=== PATIENT | male | born 1965 | race Caucasian/White ===

== ENCOUNTER 2024-10-20 11:19 | Emergency (ER) | payer OTHER, SELFPAY ==
--- NOTE | 2024-10-20 11:22 | ECG_ITS ---
APPROVED REPORT Exam: Resting ECG HR:70 bpm ECG Measurements Heart Rate 70 AXES WI 167 P 32 QRSd 84 QRS 43 QT 359 T 78 QTc 379 Conclusion Normal sinus rhythm with sinus arrhythmia Normal axis Normal intervals No STEMI Electronically signed by : Shaun García, 10/20/2024 17:33:12
--- NOTE | 2024-10-20 11:29 | [facility].EDCP ---
Discharge Plan Referrals Follow up/Referrals: Provider,Referral, [Primary Care Provider, Medical] - See instructions Clinical Impressions Clinical Impression: Acute on chronic intracranial subdural hematoma, Spontaneous intracranial hemorrhage, Acute intractable headache Stand Alone Forms Stand Alone Forms: Transfer Record - ED Print Language Print Language: Divehi Discharge ED Provider: Shaun García General Chief Complaint: Headache Stated Complaint: Headache & Hypertension Time Seen by Provider: 10/20/24 11:33 History of Present Illness HPI narrative: Is a 59-year-old male patient, past medical history of untreated hypertension and tobacco abuse with COPD, who is presenting to the Emergency Department today for evaluation of a severe headache. Patient states this headache began 2 to 3 days ago, and since onset of headache it has significantly worsened and is now described as the worst headache of his life. Patient states that he has had some blurred vision at times. Describes worsening of the headache with bearing down with bowel movements and with coughing. Also states that his headache is worse with laying flat. He has not had any weakness in his upper or lower extremities. He states that at 1 point he did have some numbness and tingling in the left arm but this has resolved. This morning prior to arrival the patient took four 325 mg aspirin which did not relieve his headache. Related Data Allergies Allergy/AdvReac Type Severity Reaction Status Date / Time No Known Allergies Allergy Verified 10/20/24 11:58 [facility] Disclaimer: The information contained in this section may have been updated after the patient was seen, as this information can be updated by other users. Social History Smoking Status: Former smoker alcohol intake: former current occupational status: unemployed and other Travel in the last 8 weeks?: None ROS Obtained: Yes Systems reviewed as appropriate & no additional complaints except as documented Physical Exam General General appearance: other (See MDM) Respiratory Respiratory exam: Present other (See MDM) Cardiovascular Cardiovascular exam: Present other (See MDM) Neurological Exam Neurological exam: Present other (See MDM) HEART Score HEART Score HEART Score assessment performed?: No Critical Care Critical Care Time Critical Care Time: Yes Attestation: On 10/20/24, the high probability of a clinically significant, sudden or life threatening deterioration of the following system(s) required my full and direct attention, intervention and personal management. The time I documented below is in addition to time spent performing reported procedures but includes the following listed in this critical care notation. Total Time Total Critical Care Time: 35 Medical Decision Making Medical Records Medical records reviewed: Yes I reviewed the patient's medical records. Jayant Inquiry Pt receiving controlled substance: No Jayant was queried for this patient: No Vital Signs Vital Signs: 10/20/24 11:31 10/20/24 11:46 10/20/24 12:01 Temperature 97.6 F Temperature Source Oral Pulse Rate 93 H 74 Pulse Rate [Left Radial] 70 Respiratory Rate 12 20 14 Blood Pressure 190/126 H 197/150 H Blood Pressure [Right Arm] 200/117 H Blood Pressure Mean [Right Arm] 144 02 Sat by Pulse Oximetry 94 L 95 96 Oxygen Delivery Method Room Air Lab Data Labs: Lab Results 10/20/24 11:25: WBC 8.9, RBC 4.74, Hgb 14.0 L, Hct 41.2 L, MCV 86.9, MCH 29.5, MCHC 34.0, RDW 12.8, Plt Count 339, MPV 9.3, Neut % (Auto) 61.2, Lymph % (Auto) 27.3, Humphreys % (Auto) 7.6, Eos % (Auto) 2.7, Baso % (Auto) 0.8, Neut # (Auto) 5.4, Lymph # (Auto) 2.4, Humphreys # (Auto) 0.7, Eos # (Auto) 0.2, Baso # (Auto) 0.1, Sodium 140, Potassium 3.9, Chloride 109 H, Carbon Dioxide 24, Anion Gap 10.9, BUN 15, Creatinine 0.90, Estimated GFR 86, Est GFR ( Amer) 104, Glucose 145 H, Calcium 9.3, Total Bilirubin 0.4, AST 24, ALT 18, Alkaline Phosphatase 101, Total Protein 7.5, Albumin 4.2, Globulin 3.3 H, Albumin/Globulin Ratio 1.3 10/20/24 11:26: POC Glucose 142 H 10/20/24 11:25 10/20/24 11:25 Response Orders (Tests/Meds): ED MEDICATIONS Generic Name Dose Route Start Last Admin Trade Name Freq PRN Reason Stop Dose Admin Magnesium Sulfate 2 gm in 50 mls @ 50 mls/hr 10/20/24 11:40 10/20/24 12:00 Magnesium Sulfate 2gm/50ml Premix IV 10/20/24 12:39 Not Given ONCE ONE Nicardipine HCl 25 mg/ Sodium 250 mls @ 25 mls/hr 10/20/24 11:55 10/20/24 12:12 Chloride IV 11/19/24 11:54 2.5 mg/hr .Q10H JOANA 25 mls/hr Protocol Administration 2.5 MG/HR Discontinued Medications Generic Name Dose Route Start Last Admin Trade Name Freq PRN Reason Stop Dose Admin Acetaminophen 1,000 mg 10/20/24 11:40 10/20/24 11:58 Acetaminophen 500mg Tab PO 10/20/24 11:41 1,000 mg ONCE ONE Administration Diphenhydramine HCl 12.5 mg 10/20/24 11:40 10/20/24 11:59 Diphenhydramine 50mg/Ml Vial IV 10/20/24 11:41 Not Given ONCE ONE Levetiracetam 2,500 mg/ Sodium 125 mls @ 250 mls/hr 10/20/24 11:53 10/20/24 12:12 Chloride IV 10/20/24 11:54 250 mls/hr ONCE ONE Administration Morphine Sulfate 4 mg 10/20/24 11:40 10/20/24 11:58 Morphine 4mg/Ml Syringe IV 10/20/24 11:41 4 mg ONCE ONE Administration Prochlorperazine Edisylate 10 mg 10/20/24 11:40 10/20/24 12:00 Prochlorperazine 10mg/2ml Vial IV 10/20/24 11:41 Not Given ONCE ONE ORDERS Category Date Time Status CT head/brain wo con Stat Cat Scan 10/20/24 11:40 Completed CBC w/Auto Diff [Complete Blood Count Auto Diff] Stat Lab 10/20/24 11:25 Completed CMP [Comprehensive Metabolic Panel] Stat Lab 10/20/24 11:25 Completed POC Glucose,Bedside Routine Lab 10/20/24 11:26 Completed ECG Data Tracing #1: Attestation: I reviewed this ECG and interpreted as documented below: ECG Narrative: EKG personally interpreted by me demonstrates normal sinus rhythm with a rate of 70 bpm, normal axis, no DC prolongation, QRS, no QTc prolongation. No ST elevation or depression. No overt signs of ischemia. There is sinus arrhythmia present. MDM Narrative Medical Decision Narrative: In summary, this is a 59-year-old male patient who is presenting to the emergency department today for a headache over the last 2 to 3 days that is worse with laying flat, coughing, and bearing down to take a bowel movement and is now described as the worst headache of his life. Headache is associated with some vision changes. This patient's headache is atraumatic. Comorbidities include past, history of tobacco abuse and COPD as well as untreated hypertension. On initial evaluation of the patient they were resting comfortably in no acute distress and nontoxic in appearance. They are hemodynamically stable, saturating well room air, and are neurologically intact. On physical examination the patient his heart and lungs are clear to auscultation bilaterally. No abdominal tenderness to palpation. He is appropriately alert and interactive with a GCS of 15. The patient is accurate with the date and the month. He has normal sensation in his bilateral upper and lower extremities with no extinction. Normal finger-nose testing bilaterally. 5 out of 5 strength in his bilateral upper and lower extremities. Cranial nerves II through XII are intact. Visual doyle are full. Extraocular movements are intact. His NIH is currently 0. Differential diagnosis includes subarachnoid hemorrhage, subdural hemorrhage, epidural hemorrhage, migraine headache, hypertensive emergency, among others. Workup was initiated with hematologic labs as well as CT scan of the head. Initial interventions included 4 mg of morphine and 4 mg of Zofran. Labs personally turbid by me demonstrate no actionable maladies. No actionable anemia or electrolyte derangement. No evidence of acute kidney injury. We did emergently get the patient over to CT scan for CT scan of his head. This was personally turbid by me and demonstrates an acute on chronic subdural hematoma on the right with a midline shift. Based on my independent read I decided to empirically treat the patient with a nicardipine drip started at 1.25 mg titrating up every 15 minutes for a systolic blood pressure less than 160. I also loaded the patient with 20 mg/kg of Keppra which comes out to around 2500 mg total Given that the patient took nearly 1000 mg of aspirin prior to arrival I do feel that he needs a reversal with DDAVP to but I do not have access to this medication at our institution. I had an interactive discussion with the transfer center with Dr. Lemus and Dr. Real. They have agreed to accept the patient to their hospital for further evaluation and management. We will transfer the patient by helicopter ambulance. In the interim, I have spoken to our radiologist at [facility]. They have further characterized this patient's acute on chronic subdural hemorrhage stating that it is approximately 11 mm in width with a 9 mm midline shift to the left. After starting 1.25 mg of nicardipine the patient's blood pressure has dropped to 150/90. We will keep him on this rate at this time. Patient was transferred to the [facility] via helicopter ambulance in stable condition.
[2024-10-20 11:31] VITALS: BP 190/126; PULSE 93; RESP 12; O2SAT 94
[2024-10-20 11:34] LABS: POC Glucose,Bedside 142 gm/dL (70-110)
--- NOTE | 2024-10-20 11:40 | CT_ITS ---
PROCEDURE INFORMATION: Exam: CT Head Without Contrast Exam date and time: 10/20/2024 11:52 AM Age: 59 years old Clinical indication: Stroke-like symptoms; Headache TECHNIQUE: Imaging protocol: Computed tomography of the head without contrast. Radiation optimization: All CT scans at this facility use at least one of these dose optimization techniques: automated exposure control; mA and/or kV adjustment per patient size (includes targeted exams where dose is matched to clinical indication); or iterative reconstruction. Other technique: STROKE PROTOCOL was implemented. COMPARISON: No relevant prior studies available. FINDINGS: Brain: There is a chronic right subdural hygroma with an acute right subdural hematoma. The subdural hematoma measures about 11 mm in thickness. There is effacement of the cortical sulci overlying the right hemisphere. There is right left midline shift measuring about 8-9 mm. There are multiple old bilateral basal ganglia and white matter infarcts. No acute intraparenchymal hemorrhage appreciated. There is an old small left cerebellar infarct. Cerebral ventricles: No ventriculomegaly. Paranasal sinuses: Visualized sinuses are unremarkable. No fluid levels. Mastoid air cells: Visualized mastoid air cells are well aerated. Bones: Unremarkable. No acute fracture. Soft tissues: Unremarkable. IMPRESSION: 1. Acute right subdural hematoma measuring up to 11 mm in thickness superimposed on chronic right subdural hygroma. There is associated mass effect upon the right hemisphere and there is [id number] midline shift measuring about 8-9 mm. 2. 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 ASSESSMENT: ASPECTS ([facility] Stroke Program Early CT Score) is 10
[2024-10-20 11:46] VITALS: BP 200/117; PULSE 70; RESP 20; TEMP 36.4; O2SAT 95; BMI 39.9
[2024-10-20 11:49] LABS: Hematocrit 41.2 % (42.0-52.0); Hemoglobin 14.0 g/dL (14.1-18.0); Immature Granulocytes % 0.4 %; Mean Corpuscular HGB Conc 34.0 g/dL (31.8-35.4); Mean Corpuscular Hemoglobin 29.5 pg (27.0-31.2); Mean Corpuscular Volume 86.9 fl (80-94); Nucleated Red Blood Cells % 0 %; Platelet Count 339 K/mm3 (142-424); Red Blood Count 4.74 M/mm3 (4.60-6.20); Red Cell Distribution Width-SD 40.6 fL; White Blood Count 8.9 K/mm3 (4.8-10.8)
[2024-10-20 11:51] LABS: Albumin Level 4.2 g/dl (3.5-5.0); Chloride 109 mmol/L (98-107); Potassium 3.9 mmoL/L (3.5-5.1); Sodium 140 mmol/L (136-145)
[2024-10-20 11:54] LABS: Alanine Aminotransferase 18 U/L (12-78); Albumin/Globulin Ratio 1.3 (1.1-1.8); Alkaline Phosphatase 101 U/L (38-126); Anion Gap 10.9 mEq/L (5-15); Aspartate Amino Transferase 24 U/L (17-59); Bilirubin,Total 0.4 mg/dl (0.2-1.3); Blood Urea Nitrogen 15 mg/dl (9-20); Calcium 9.3 mg/dl (8.4-10.2); Carbon Dioxide 24 mmol/L (22.0-30.0); Creatinine,Serum 0.90 mg/dl (0.66-1.25); Estimated Glomerular Filt Rate 86 ml/min (>60); GFR (African American) 104 ML/MIN (>60); Globulin 3.3 g/dL (1.3-3.2); Glucose 145 mg/dl (74-100); Total Protein,Serum 7.5 g/dl (6.3-8.2)
--- OUTSIDE RECORDS SUMMARY | 2024-10-20 11:54 | XMS_ITS | Clinical Summary ---
Author Organization [facility] Address [address] [place] [address] Phone Care Team Providers Care Environmental Assistant Name Role Phone Unavailable Primary Care Provider Unavailabl e Allergies No known active allergies Medications AmLODIPine-Olmesa rtan 5-40 mg Oral TabletIndications :Essential (primary) hypertension Take 1 Tablet by mouth daily. 90 Tablet 2 3 Active albuterol (PROAIR HFA) 90 mcg/actuation Inhl HFA Aerosol InhalerIndication s:COPD, severe (HCC) Inhale 2 Puffs into the lungs every 6 hours as needed for Wheezing. 3 Each 4 4 Active budesonide-glycop yr-formoterol 160-9-4.8 mcg/actuation Inhl HFA Aerosol InhalerIndication s:COPD, severe (HCC) Inhale 1 Puff into the lungs 2 times daily. 10.7 g 2 4 Active BREZTRI AEROSPHERE 160-9-4.8 mcg/actuation Inhl HFA Aerosol InhalerIndication s:COPD, severe (HCC) USE 1 INHALATION TWICE A DAY 10.7 g 5 4 Active Active Problems Problem Noted Date Diagnosed Date Spinal stenosis of lumbar re gion with neurogenic claudication 12/31/2020 Assessment & Plan (12/31/2020 8:52 AM EST): Recent MRI with spinal stenosis and forminal stenosis, hoping amenable to intervention. Referred to back specialists for evaluation. BPH with urinary obstruction 11/22/2020 Assessment & Plan (11/22/2020 9:00 PM EDT): Refilled per pt request Allergic rhinitis 11/21/2020 COPD, severe 11/21/2020 Assessment & Plan (01/04/2023 1:02 PM EST): Significant help from Michael, though he is out now. We will try to send through [employer] Assessment & Plan (11/03/2022 2:07 PM EDT): Needs maintenance inhaler, will give samples of Breztri and monitor response Assessment & Plan (12/31/2020 8:56 AM EST): Likely contributing to his fatigue and FIGUEROA. Will refer to pulmonology. Assessment & Plan (11/22/2020 8:57 PM EDT): Inhalers refilled per pt request. DDD (degenerative disc disease), lumbar 11/22/19 21 Moderate episode of recurrent major depressive d isorder 11/21/2020 Assessment & Plan (12/31/2020 8:57 AM EST): Starting wellbutrin Gastroesophageal reflux disease without esophagi tis 11/21/2020 Essential (primary) hypertension 11/21/2020 Assessment & Plan (01/07/2023 7:01 AM EST): Much improved, though still slightly above goal. Will increase to olmesartan-amlodipine 40-5, and he will send me a log of his BP readings. Assessment & Plan (11/03/2022 2:08 PM EDT): Severely above goal range, though this is likely a chronic state for him. We discussed the importance of getting this under control, and that he may feel a bit sluggish as wel lower his BP to a normal range. Will start with combination olmesartan-amlodipine and follow up in ~2 weeks to monitor. Return precautions for hypertensive emergency discussed. Assessment & Plan (11/22/2020 8:58 PM EDT): Metoprolol refilled per pt request Mixed hyperlipidemia 11/21/2020 Assessment & Plan (11/22/2020 9:01 PM EDT): Refilled per pt MARION (obstructive sleep apnea) 11/21/2020 Sensorineural hearing loss, bilateral 11/21/2020 Nicotine dependence, cigarettes, uncomplicated 0 04/15/2015 Assessment & Plan (12/31/2020 8:56 AM EST): Pt currently contemplative concerning quitting. Quit date: 2 months. Follow up: 2 months. Counseling given on impact of smoking and NRT options discussed for >5 mins, resources provided for cessation help. Wellbutrin sent. Resolved Problems Problem Noted Date Diagnosed Date Resolved Date Leukocytosis 12/22/2021 11/03/2022 Chronic fatigue 11/22/2020 11/03/2022 Assessment & Plan (12/31/2020 8:55 AM EST): MDM: Chronic illness with severe exacerbation, progression, or side effects of treatment, Prescription Drug Management and Drug therapy requiring intensive monitoring for toxicity Discussed with patient that this is almost certainly a multifactorial problem, stemming from COPD, depression, likely DM, and chronic pain. We will start with adding wellbutrin for smoking cessation, depression, and hopeful boost in energy with noradrenergic effects. Also continuing with modafinil for now. He is basically nonfunctional without it, though I thoroughly discussed this is a SHORT TERM medication that we will use to help out while we address other issues, and that this is a dangerous medication to use fci. Assessment & Plan (11/22/2020 9:09 PM EDT): MDM: Chronic illness with exacerbation, progression, or side effects and Prescription Drug Management Discussed risks of modafinil usage with patient at length. I also discussed with him that this medication is likely not fixing anything, just covering it up. Fatigue is almost certainly multifactorial, with multiple poorly treated comorbidities contributing. Because he tells me he is essentially nonfunctional without it, I agreed to continue this medication for now with the explicit plan to wean off it as his other medical conditions become better treated. Return precautions discussed. Immunizations Immunization Administration Dates Next Due Hepatitis A, Adult 07/30/1996 Influenza Vaccine Quadrivalent PF 03/02/2019, Influenza Vaccine, Unspecified Formulation 03/02,12/09/2017,01/20/2006 Influenza, Split (Incl. Katharina fied Surface Antigen) 01/01/2003 Influenza, Whole 01/20/2006,11/06/1997 MMR 12/15/1981 Meningococcal Polysaccharide 06/27/2002,12/15/18 82 Pneumococcal Polysaccharide 23 Valent 03/02/2019 Polio, Unspecified Formulation 02/17/1982 Td (Adult), Absorbed 08/08/1995 Tdap 03/02/2019 Typhoid, Parenteral 06/05/2003,04/25/2001,1999 Yellow Fever 05/08/1999 Surgical History Surgery Date Site/Laterality Comments APPENDECTOMY UPPER GASTROINTESTINAL ENDOSCOPY 12/23/2021 N/A esophagastroduodenoscopy with biopsy; Surgeon: Sonia Mancera MD; Location: [facility]; Service: Endoscopy Medical History Medical History Date Comments MARION on CPAP COPD, severe (HCC) Hyperlipidemia Hypertension Family History Medical History Relation Name Comments COPD Father Relation Name Status Comments Father Social History Tobacco Use Types Packs/Day Years Used Date Smoking Tobacco: Every Day Cigarettes 1 43.7 Started: 02/14/1981 Smokeless Tobacco: Never Tobacco Cessation:Ready to Q uit: Not Asked; Counseling Given: Not Answered Alcohol Use Standard Drinks/Week Comments Not Currently 1 (1 standard drink = 0.6 oz pur e alcohol) Overall Financial Resource Strain (CARDIA) Answe r Date Recorded How hard is it for you to pa y for the very basics like food, housing, medical care, and heating? Somewhat hard 12/24/2021 PHQ-2 Answer Date Recorded PHQ-2 Total Score 0 11/03/2022 [facility] [place] [facility] Occupat ional Health - Occupational Stress Questionnaire Answer Date Recorded Do you feel stress - tense, restless, nervous, or anxious, or unable to sleep at night because your mind is troubled all the time - these days? Rather much 12/24/2021 Exercise Vital Sign Answer Date Recorde d On average, how many days pe r week do you engage in moderate to strenuous exercise (like a brisk walk)? 0 days 12/24/2021 On average, how many minutes do you engage in exercise at this level? 0 min 12/24/2021 Hunger Vital Sign Answer Date Recorded Within the past 12 months, y ou worried that your food would run out before you got the money to buy more. Never true 12/25/19 22 Within the past 12 months, t he food you bought just didn't last and you didn't have money to get more. Never true 12/24/2021 PRAPARE - Transportation Answer Date Re corded In the past 12 months, has l ack of transportation kept you from medical appointments or from getting medications? No 12/15 In the past 12 months, has l ack of transportation kept you from meetings, work, or from getting things needed for daily living? No 12/24/2021 Sex and Gender Information Value Date Recorded Sex Assigned at Not on file Legal Sex Male 2:50 PM EDT Gender Identity Not on file Sexual Orientation Not on file Obstetrics History Last Filed Vital Signs Vital Sign Reading Time Taken Comments Blood Pressure 158/84 01/04/2023 12:29 PM EST Pulse 77 01/04/2023 12:29 PM EST Temperature 36.4 C (97.5 F) 01/04/2023 12:29 PM EST Respiratory Rate 18 12/23/2021 2:26 PM EST Oxygen Saturation 96% 01/04/2023 12: 29 PM EST Inhaled Oxygen Concentration - - Weight 123.6 kg (272 lb 6.4 oz) 023 12:29 PM EST Height 170.2 cm (5' 7 ) 01/04/2023 12:2 9 PM EST Body Mass Index 42.66 01/04/2023 12:29 PM EST Plan of Treatment Health Maintenance Due Date Last Done Comments Diabetic Eye Exam 08/10/1981 Kidney Health: uACR 08/10/1981 Cologuard 08/10/2008 Colon Cancer Screening 08/10/2008 Colonoscopy 08/10/2008 FIT 08/10/2008 Sigmoidoscopy 08/10/2008 Virtual Colonography 08/10/2008 Zoster (1 of 2) 08/10/2013 Pneumococcal Vaccine 50+ (2 of 2 - PCV) 03/02/2020 03/02/2019 Hemoglobin A1c 05/04/2023 11/03/2022, 11/21/2020 RSV or 60+ (1 - Risk 60-74 years 1-dose series) 2023 Annual Wellness Exam 11/04/2023 11/03/2022 Kidney Health: eGFR 11/04/2023 11/03/2022, 12/22/2021, 12/21/2021, Additional history exists Lipids 11/04/2023 11/03/2022, 11/21/2020 COVID-19 Vaccine ( season) 2024 Influenza Vaccine (#1) 2024 , 03/02/2019, 12/09/2017, Additional history exists Low Dose Lung Cancer Screening 11/06/2024 11/07/2023, 11/03/2022, 01/28/2021 DTaP/TDaP/Td (2 - Td or Tdap) 03/02/2029 03/02/2019, 08/08/1995 Hepatitis C Screening Completed 11/21/2020 Hepatitis B Vaccine Aged Out No longe r eligible based on patient's age to complete this topic Meningococcal B Vaccine Aged Out No l onger eligible based on patient's age to complete this topic Goals Goal Patient Goal Type Associated Problems Recent Progress Patient-Stated? Author Blood Pressure < 140/90 Blood Pressure 158/84(2022 12:29 PM EST) No Lincoln Pearson MD Maintain a healthy diet, exercise regularly and maintain an ideal body weight General No Lincoln Pearson MD Stay Tobacco Free Lifestyle No Lincoln Pearson MD Procedures Procedure Name Priority Date/Time Associated Diagnosis Comments CT LUNG CANCER SCREENING LOW DOSE Routine 11/07/2023 3:10 PM EDT Screening for malignant neoplasm of respiratory organ Personal history of tobacco use, presenting hazards to health COMPREHENSIVE METABOLIC PANEL Routine 11/03/2022 1:14 PM EDT Annual physical exam LIPID PANEL REFLEX Routine 11/03/2022 1: 14 PM EDT Annual physical exam HEMOGLOBIN A1C Routine 11/03/2022 1:14 PM EDT Annual physical exam HCV ANTIBODY SCREEN W/ REFLEX Routine 11/21/2020 10:50 AM EDT Healthcare maintenance from Last 3 Months or Most Recently Relevant to Health Maintenance Results * CT LUNG CANCER SCREENING LOW DOSE (11/07/2023 3:10 PM EDT) Anatomical Region Laterality Modality Lung Computed Tomogra phy 11/07/2023 3:10 PM EDT Impressions 11/07/2023 3:20 PM EDT Unremarkable low-dose screening chest CT. RECOMMENDATION: Low Dose CT - 1 Yr A summary letter communicating these results will be mailed to the patient's address of record. - Note: Radiology results need to be interpreted within a comprehensive clinical context. If you have questions about the radiology report, please contact the office of the ordering clinician. [email or web address] Narrative 11/07/2023 3:[address] LUNG CANCER SCREENING LOW DOSE 11/07/2023 3:10 PM CLINICAL HISTORY: Asymptomatic patient meeting NCCN high risk criteria for lung screening. Z12.2-Encounter for screening for malignant neoplasm of respiratory [id number]-XHM-81-CM Z87.891-Personal history of nicotine ouiwzjmkhg-YST-05-CM. COMPARISON: 11/03/2022, 01/28/2021 PROCEDURE COMMENTS: Noncontrast, low-dose, multidetector CT chest per department protocol. Interactive 3-D postprocessing done by the reviewing physician on a [employer] workstation, using Maximum intensity projections (MIPS) and [employer] LUNG CAD for improved lesion detection. Patel images archived to PACS. Dose 1 : CT DLP Total : 55.85 mGycm DLP Spiral Max : 51.95 mGycm Maximum CTDI Vol : 1.29 mGy FINDINGS: There is no axillary or mediastinal adenopathy. The heart chambers and great vessels normal caliber. The airways are grossly patent. Emphysema. There is no dense consolidation or pleural effusion. Pulmonary nodules: No suspicious pulmonary nodules. Coronary artery calcification: Moderate. FOLLOW-UP CODE: Lung-RADS Category 1: Negative: No nodule or definitely benign nodule(s). Continued ANNUAL LOW-DOSE SCREENING CT SCAN (IMG [id number]) suggested if age <78. Procedure Note Durga Courtney MD - 11/07/2023 CT LUNG CANCER SCREENING LOW DOSE 11/07/2023 3:10 PM CLINICAL HISTORY: Asymptomatic patient meeting NCCN high risk criteria forlung screening. Z12.2-Encounter for screening for malignant neoplasm ofrespiratory wcxjqr-WIK-54-CM Z87.891-Personal history of nicotine hekomnzfoi-YHD-21-CM. COMPARISON: 11/03/2022, 01/28/2021 PROCEDURE COMMENTS: Noncontrast, low-dose, multidetector CT chest perdepartment protocol. Interactive 3-D postprocessing done by the reviewing physicianon a [employer] workstation, using Maximum intensity projections (MIPS) and SVXR CAD for improved lesion detection. Patel images archived to PACS. Dose 1 : CT DLP Total : 55.85 mGycm DLP Spiral Max : 51.95 mGycm Maximum CTDI Vol : 1.29 mGy FINDINGS: There is no axillary or mediastinal adenopathy. The heart chambers andgreat vessels normal caliber. The airways are grossly patent. Emphysema. There is no dense consolidationor pleural effusion. Pulmonary nodules: No suspicious pulmonary nodules. Coronary artery calcification: Moderate. FOLLOW-UP CODE: Lung-RADS Category 1: Negative: No nodule or definitelybenign nodule(s). Continued ANNUAL LOW-DOSE SCREENING CT SCAN [place] [id number]suggested if age <78. IMPRESSION: Unremarkable low-dose screening chest CT. RECOMMENDATION: Low Dose CT - 1 Yr A summary letter communicating these results will be mailed to thepatient's address of record. - Note: Radiology results need to be interpreted within a comprehensiveclinical context. If you have questions about the radiology report, please contactthe office of the ordering clinician. [email or web address] Lincoln Pearson MD [facility] [place] ORDERABLES Final Result * (ABNORMAL) LIPID PANEL REFLEX (11/03/2022 1:14 PM EDT) Cholesterol 186 <200 mg/dL 11/03/2022 9:16 PM EDT [facility] Comment: < 200 Desirable 200 - 239 Borderline High >= 240 High Triglyceride 117 <150 mg/dL 11/03/2022 9:16 PM EDT [facility] Comment: < 150 Normal 150 - 199 Borderline High 200 - 499 High >= 500 Very High HDL 30(L) >=40 mg/dL 11/03/2022 9:16 PM EDT [facility] Comment: > 60 Optimal 40 - 60 Acceptable < 40 Low LDL Calculated 135(H) <100 mg/dL 11/03/2022 9:16 PM EDT [facility] Non-HDL-C Calculated 156(H) <=129 mg/dL 11/03/2022 9:16 PM EDT [facility] Comment: <130 Desirable 130-159 Above Desirable 160-189 Borderline High 190-219 High >= 220 Very High Fasting Specimen? Yes None 023 9:16 PM EDT [facility] Blood VENOUS BLOOD / Unknown Venipuncture / Unknown 11/03/2022 1:14 PM EDT 11/03/2022 1:14 PM EDT Lincoln Pearson MD CHEMISTRY ORDERABLES Final Resul t [facility] [address] [facility], [place] [address] [facility] [address] [place] [address] * (ABNORMAL) HEMOGLOBIN A1C (11/03/2022 1:14 PM EDT) Hgb A1C 6.5(H) 4.2 - 5.6 % 11/04/2022 6:37 AM EDT [facility] Est. Avg Glucose 140 mg/dL 11/04/2022 6:37 AM EDT [facility] [employer], [facility] Blood VENOUS BLOOD / Unknown Venipuncture / Unknown 11/03/2022 1:14 PM EDT 11/03/2022 1:14 PM EDT Narrative [facility] - 11/04/2022 6:37 AM EDT REFERENCE RANGE: Normal: 4.0-5.6% Pre-diabetes: 5.7-6.4% Provisional diagnosis of diabetes: >6.4% Hgb F>10% and anything which shortens red cell survival, such as hemolytic anemia, or unstable hemoglobin variants such as HbSS, HbSC, or HbCC, will lower the HbA1c value associated with a given level of glycemic control. Lincoln Pearson MD CHEMISTRY ORDERABLES Final Resul t [facility] [address] [facility] , [place] [address] * (ABNORMAL) COMPREHENSIVE METABOLIC PANEL (11/03/2022 1:14 PM EDT) Sodium 140 136 - 145 mmol/L 11/03/2022 9:16 PM EDT [facility] Potassium 4.4 3.5 - 5.0 mmol/L 11/03/2022 9:16 PM EDT [facility] Chloride 106 98 - 107 mmol/L 11/03/2022 9:16 PM EDT [facility] Total CO2 24 22 - 29 mmol/L 11/03/2022 9:16 PM EDT [facility] Anion Gap 10 7 - 16 mmol/L 11/03/2022 9:16 PM EDT [facility] Calcium 9.5 8.6 - 10.4 mg/dL 11/03/2022 9:16 PM EDT [facility] Glucose Lvl 110(H) 74 - 100 mg/dL 11/03/2022 9:16 PM EDT [facility] BUN 12 6 - 20 mg/dL 11/03/2022 9:16 PM EDT [facility] Creatinine 0.90 0.67 - 1.30 mg/dL 11/03/2022 9:16 PM EDT [facility] Albumin 4.1 3.5 - 5.2 gm/dL 11/03/2022 9:16 PM EDT [facility] Total Protein 7.2 6.4 - 8.3 gm/dL 11/03/2022 9:16 PM EDT [facility] Bili Total 0.2 0.2 - 1.4 mg/dL 11/03/2022 9:16 PM EDT [facility], [facility] ALT 16 <=41 U/L 11/03/2022 9:16 PM EDT [facility], [facility] AST 16 <=40 U/L 11/03/2022 9:16 PM EDT [facility], [facility] Alk Phos 108 40 - 129 U/L 11/03/2022 9:16 PM EDT [facility], [facility] eGFR (CKD-EPIcr 2020) 98 >=60 mL/min/1.7 3 m2 11/03/2022 9:16 PM EDT [facility] Comment:Estimated GFR was ca lculated using the CKD-EPIcr (2020) equation refit without race. The equation is recommended by the National Kidney [employer] - [place] [employer] of Nephrology Task Force. Blood VENOUS BLOOD / Unknown Venipuncture / Unknown 11/03/2022 1:14 PM EDT 11/03/2022 1:14 PM EDT Lincoln Pearson MD CHEMISTRY ORDERABLES Final Resul t Performing Organization Address City/[facility]/ZIP Co de Phone Number [facility] [employer] , [place] [address] [facility] [address] [place], [place] [id number] * HEPATITIS C ANTIBODY - SCREENING (11/21/2020 10:50 AM EDT) Hep C Ab Non-Reactiv e Non-Reacti ve 11/21/2020 5:56 PM EDT [facility] Blood VENOUS BLOOD / Unknown Venipuncture / Unknown 11/21/2020 10:50 AM EDT 11/21/2020 10:50 AM EDT us Lincoln Pearson MD HEMATOLOGY ORDERABLES Final Resu lt [facility] [address] [facility] , [address] [place] [phone] from Last 3 Months or Most Recently Relevant to Health Maintenance Insurance
[2024-10-20] MEDS: ACETAMINOPHEN 500MG TAB 1000 MG PO (11:58)
[2024-10-20] MEDS: MORPHINE 4MG/ML SYRINGE 4 MG IV (11:58)
--- NOTE | 2024-10-20 11:58 | PC.NURSE ---
Called [facility] for possible transfer. Power shared images.
[2024-10-20 12:01] VITALS: BP 197/150; PULSE 74; RESP 14; O2SAT 96
[2024-10-20] MEDS: levETIRAcetam 2,500 MG in 0.9 % SODIUM CHLORIDE 100 ML 250 MG IV (12:12)
[2024-10-20] MEDS: NICARDIPINE HCL 25 MG in 0.9 % SODIUM CHLORIDE 240 ML IV (12:12)
[2024-10-20 12:41] VITALS: BP 147/97; PULSE 70; RESP 20; TEMP 36.7; O2SAT 95
== END 2024-10-20 12:46 | disposition short-term general hospital (02) ==
PROVIDERS: Emergency Provider Student in an Organized Health Care Education/Training Program
DX: I62.01 Nontraumatic acute subdural hemorrhage (principal); R51.9 Headache, unspecified
CPT/HCPCS: 70450; 80053; 82962; 85025; 93005; 96365; 96367; 96375; 99285; 99291; J1953; J2270; J2404; J7050